=== PATIENT | male | born 2000 | race African-American/Black ===

== ENCOUNTER → 2023-05-19 | Emergency (ER) | payer OTHER, SELFPAY ==
[~2023-05-19] MED LIST: ACETAMINOPHEN 500 MG TAB ONE; AZITHROMYCIN 250 MG TAB ONE; CEFTRIAXONE 1000 MG/VIAL ONE; KETOROLAC 30 MG/ML INJ ONE; LIDOCAINE 2% MPF 5 ML VIAL ONE; PROMETHAZINE 25 MG TABLET ONE; predniSONE 20 MG TAB ONE
--- NOTE | 2023-05-19 01:44 | EDPHYS ---
Physician Documentation [facility] Name: Shell Garcia Age: 23 yrs Sex: Male : 2000 Arrival Date: 05/19/2023 Time: 01:18 Bed 20 Private MD: ED Physician Jordan Hutchinson HPI: 05/19 01:37 This 23 yrs old Black Male presents to ER via Ambulatory with complaints of Sore sp4 Throat, Swollen Glands, Difficulty Swallowing. 01:37 23-year-old male presents with acute onsets bilateral throat pain, difficulty sp4 swallowing, and painful swallowing. Painful states he is still able to swallow food and water. . 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 Historical: - Allergies: 01:33 No Known Allergies; km8 - Home Meds: 01:33 None [Active]; km8 - PMHx: 01:33 None; km8 - PSHx: 01:33 None; km8 - Immunization history:: Client reports having NOT received the Covid vaccine. Flu vaccine is not up to date. - Social history:: Smoking status: Patient denies any tobacco usage or history of. Patient/guardian denies using alcohol, street drugs. - Family history:: not pertinent. ROS: 01:37 Constitutional: Negative for fever, chills, and weight loss, positive for painful sp4 throat, difficulty swallowing, and painful swallowing. Positive bilateral ear pain. 01:37 All other systems are negative, Exam: 01:37 Constitutional: This is a well developed, well nourished patient who is awake, alert, sp4 and in no acute distress. Head/Face: Normocephalic, atraumatic. Eyes: Pupils equal round and reactive to light, extra-ocular motions intact. Lids and lashes normal. Conjunctiva and sclera are not injected. Cornea within normal limits. Periorbital areas with no swelling, redness, or edema. ENT: Nares patent. No nasal discharge, no septal abnormalities noted. Tympanic membranes are normal and external auditory canals are clear. Oropharynx with bilateral eye redness, positive strawberry tongue, positive bilateral exudates, patent airway, no uvular deviation. Exam consistent with exudative tonsillitis. Neck: Trachea midline, no thyromegaly or masses palpated, and no cervical lymphadenopathy. Supple, full range of motion without nuchal rigidity, or vertebral point tenderness. Chest/axilla: Normal chest wall appearance and motion. Nontender with no deformity. No lesions are appreciated. Cardiovascular: Regular rate and rhythm with a normal S1 and S2. No gallops, murmurs, or rubs. Normal PMI, no JVD. No pulse deficits. Respiratory: Lungs have equal breath sounds bilaterally, clear to auscultation and percussion. No rales, rhonchi or wheezes noted. No increased work of breathing, no retractions or nasal flaring. Abdomen/GI: Soft, non-tender, with normal bowel sounds. No distension or tympany. No guarding or rebound. No evidence of tenderness throughout. Back: No spinal tenderness. No costovertebral tenderness. Skin: Warm, dry with normal turgor. Normal color with no rashes, no lesions, and no evidence of cellulitis. MS/ Extremity: Pulses equal, no cyanosis. Neurovascular intact. Full, normal range of motion. Neuro: Awake and alert, GCS 15, oriented to person, place, time, and situation. Cranial nerves II-XII grossly intact. Motor strength 5/5 in all extremities. Sensory grossly intact. Psych: Awake, alert, with orientation to person, place and time. Behavior, mood, and affect are within normal limits Vital Signs: 01:31 BP 145 / 99; Pulse 96; Resp 16; Temp 99.5(TE); Pulse Ox 99% on R/A; Weight 106.59 kg km8 (R); Height 6 ft. 0 in. (R); Pain 7/10; 01:31 Body Mass Index 31.87 (106.59 kg, 182.88 cm) km8 01:31 Pain Scale: Adult km8 Hart Coma Score: 01:35 Eye Response: spontaneous(4). Motor Response: obeys commands(6). Verbal Response: km8 oriented(5). Total: 15. MDM: 01:37 Differential diagnosis: apthous ulcer, bronchitis, echovirus infection, sp4 gingivostomatitis, pharyngitis, tonsillitis. Data reviewed: vital signs, nurses notes, lab test result(s), finger stick glucose. ED course: Patient will be prescribed an extended course of cefdinir also double covered with Zithromax.. Will prescribe high-dose ibuprofen every 6 hours as needed for pain. So as needed ondansetron as needed for nausea. 01:44 Patient medically screened. sp4 05/19 02:02 Order name: Glucose, Ancillary Testing EDWY 05/19 01:37 Order name: Accucheck Blood Glucose; Complete Time: 01:53 sp4 Administered Medications: 01:54 Drug: Rocephin (cefTRIAXone) IM 1 grams IM once Route: IM; Site: left gluteus; km8 02:14 Follow up: Response: No adverse reaction km8 01:54 Drug: Ketorolac IM 60 mg IM once Route: IM; Site: right gluteus; km8 02:14 Follow up: Response: No adverse reaction km8 01:54 Drug: Acetaminophen PO 1000 mg PO once Route: PO; km8 02:14 Follow up: Response: No adverse reaction km8 01:54 Drug: predniSONE PO 60 mg PO once Route: PO; km8 02:14 Follow up: Response: No adverse reaction km8 01:54 Drug: AZITHromycin PO 500 mg PO once Route: PO; km8 02:14 Follow up: Response: No adverse reaction km8 01:54 Drug: Promethazine PO 25 mg PO once Route: PO; km8 02:14 Follow up: Response: No adverse reaction km8 Disposition Summary: 05/19/23 01:44 Discharge Ordered Problem: new sp4 Symptoms: have improved sp4 Condition: Stable sp4 Diagnosis - Streptococcal tonsillitis sp4 - Acute pharyngitis, unspecified sp4 Followup: sp4 - With: Private Physician - When: As needed - Reason: Discharge Instructions: - Discharge Summary Sheet sp4 - Tonsillitis, Kibp-os-Pyxd sp4 Forms: - Patient Portal Instructions sp4 Prescriptions: - cefdinir 300 mg Oral capsule - take 1 capsule ORAL route 2 times per day for 10 days; 20 capsule; Refills: 0, sp4 Product Selection Permitted - Ibuprofen 800 mg Oral tablet - take 1 tablet ORAL route every 6 hours As needed PRN pain; 30 tablet; Refills: sp4 0, Product Selection Permitted - Zithromax Z-Garcia 250 mg Oral Tablet - take 1 tablet ORAL route as directed for 5 days Day 1 - take two (2) tablets sp4 one time. Day 2, 3, 4 , 5 take one (1) tablet once daily.; 6 tablet; Refills: 0, Product Selection Permitted - ondansetron 8 mg Oral Tablet,disintegrating - take 1 tablet ORAL route every 6 hours PRN nausea; 30 tablet; Refills: 0, sp4 Product Selection Permitted Signatures: Jordan Hutchinson MD MD sp4 Maddi Najera RN RN km8
--- NOTE | 2023-05-19 01:44 | ER ---
Nurse's Notes [facility] Name: Shell Garcia Age: 23 yrs Sex: Male : 2000 Arrival Date: 05/19/2023 Time: 01:18 Bed 20 Private MD: Diagnosis: Streptococcal tonsillitis;Acute pharyngitis, unspecified Presentation: 05/19 01:31 Chief complaint: Patient states: sore throat for 1 week; denies fever/chills. km8 Coronavirus screen: Client denies travel out of the [place] in the last 14 days. Ebola Screen: No symptoms or risks identified at this time. Initial Sepsis Screen: Does the patient meet any 2 criteria? HR > 90 bpm. Does the patient have a suspected source of infection? No. Patient's initial sepsis screen is negative. Risk Assessment: Do you want to hurt yourself or someone else? Patient reports no desire to harm self or others. Onset of symptoms was May 11, 2023. :31 Method Of Arrival: Ambulatory [facility] 01:31 Acuity: ELGIN 3 km8 Triage Assessment: :33 General: Appears in no apparent distress. comfortable, Behavior is calm, cooperative, km8 appropriate for age. Pain: Complains of pain in throat Pain currently is 7 out of 10 on a pain scale. EENT: Reports sore throat. Neuro: Level of Consciousness is awake, alert, obeys commands, Oriented to person, place, time, situation. Cardiovascular: Denies chest pain, shortness of breath. Respiratory: Airway is patent Respiratory effort is even, unlabored, Respiratory pattern is regular, symmetrical. GI: No signs and/or symptoms were reported involving the gastrointestinal system. : No signs and/or symptoms were reported regarding the genitourinary system. Derm: No signs and/or symptoms reported regarding the dermatologic system. Skin is intact, is healthy with good turgor, Skin is dry, Skin is pink, warm \T\ dry. normal, Skin temperature is warm. Musculoskeletal: No signs and/or symptoms reported regarding the musculoskeletal system. Circulation, motion, and sensation intact. Range of motion: intact in all extremities. Historical: - Allergies: : No Known Allergies; km8 - Home Meds: : None [Active]; km8 - PMHx: 01:33 None; km8 - PSHx: 01:33 None; km8 - Immunization history:: Client reports having NOT received the Covid vaccine. Flu vaccine is not up to date. - Social history:: Smoking status: Patient denies any tobacco usage or history of. Patient/guardian denies using alcohol, street drugs. - Family history:: not pertinent. Screenin:35 [facility] ED Fall Risk Assessment (Adult) History of falling in the last 3 months, km8 including since admission No falls in past 3 months (0 pts) Confusion or Disorientation No (0 pts) Intoxicated or Sedated No (0 pts) Impaired Gait No (0 pts) Mobility Assist Device Used No (0 pt) Altered Elimination No (0 pt) Score/Fall Risk Level 0 - 2 = Low Risk Oriented to surroundings, Maintained a safe environment, Educated pt \T\ family on fall prevention, incl call for assistance when getting out of bed, Assessed \T\ reinforced patient's understanding of fall precautions. Abuse screen: Denies threats or abuse. Denies injuries from another. Nutritional screening: No deficits noted. Tuberculosis screening: No symptoms or risk factors identified. Assessment: 01:35 Reassessment: see triage assessment/notes. km8 Vital Signs: 01:31 BP 145 / 99; Pulse 96; Resp 16; Temp 99.5(TE); Pulse Ox 99% on R/A; Weight 106.59 kg km8 (R); Height 6 ft. 0 in. (R); Pain 7/10; 01:31 Body Mass Index 31.87 (106.59 kg, 182.88 cm) km8 01:31 Pain Scale: Adult km8 Selin Coma Score: 01:35 Eye Response: spontaneous(4). Motor Response: obeys commands(6). Verbal Response: km8 oriented(5). Total: 15. ED Course: 01:21 Patient arrived in ED. [email or web address] 01:31 Maddi Najera, SOHEILA is Primary Nurse. km8 01:33 Triage completed. km8 01:33 Arm band placed on right wrist. km8 01:35 Jordan Hutchinson MD is Attending Physician. sp4 01:35 Patient has correct armband on for positive identification. Bed in low position. Call km8 light in reach. Side rails up X 1. 01:35 No provider procedures requiring assistance completed. Patient maintains SpO2 km8 saturation greater than 95% on room air. 01:39 Maddi Najera, RN is Primary Nurse. km8 02:13 Provided Education on: d/c teaching. km8 02:14 Patient did not have IV access during this emergency room visit. km8 Administered Medications: 01:54 Drug: Rocephin (cefTRIAXone) IM 1 grams IM once Route: IM; Site: left gluteus; km8 02:14 Follow up: Response: No adverse reaction km8 01:54 Drug: Ketorolac IM 60 mg IM once Route: IM; Site: right gluteus; km8 02:14 Follow up: Response: No adverse reaction km8 01:54 Drug: Acetaminophen PO 1000 mg PO once Route: PO; km8 02:14 Follow up: Response: No adverse reaction km8 01:54 Drug: predniSONE PO 60 mg PO once Route: PO; km8 02:14 Follow up: Response: No adverse reaction km8 01:54 Drug: AZITHromycin PO 500 mg PO once Route: PO; km8 02:14 Follow up: Response: No adverse reaction km8 01:54 Drug: Promethazine PO 25 mg PO once Route: PO; km8 02:14 Follow up: Response: No adverse reaction km8 Medication: 01:35 VIS not applicable for this client. km8 Outcome: 01:44 Discharge ordered by . sp4 02:13 Discharged to home ambulatory, km8 02:13 Condition: good 02:13 Discharge instructions given to patient, Instructed on discharge instructions, follow up and referral plans. medication usage, Demonstrated understanding of instructions, follow-up care, medications, Prescriptions given X 4, 02:14 Patient left the ED. km8 Signatures: Krista Villalba [email or web address] Jordan Hutchinson MD MD sp4 Maddi Najera, RN RN km8
[2023-05-19 02:22] VITALS: BP 145/99; TEMP 99.5; O2SAT 99
== END ==
LOC: ER 01:18
DX: J03.00 Acute streptococcal tonsillitis, unspecified (principal); Z28.310 Unvaccinated for COVID-19
CPT/HCPCS: 82947; Q0169; J7512; J2001; J0696